=== PATIENT | female | born 1935 | race Caucasian/White ===

== ENCOUNTER 2017-11-25 11:21 | Emergency (ER) | payer MEDICARE ==
[2017-11-25] MEDS ORDERED: ACETAMINOPHEN 325 MG TAB PO ONE (11:48)
--- NOTE | 2017-11-25 11:52 | Emergency Department Record ---
History of Present Illness - General Chief complaint: Pain Stated complaint: PAIN IN RIGHT SIDE Time Seen by Provider: 11/25/17 11:39 Source: Patient Mode of Arrival: Ambulatory Limitations: No limitations - History of Present Illness Initial comments: The patient is here due to R rib pain for 3 days. It is a sharp stabbing pain in the R lower ribs that is worse with any twisting, bending or palpation. She denies any fall or trauma or any L sided CP, SOB, or MACARENA. The patient also denies any AP, nausea, vomiting, or diarrhea. MD Complaint: Other Onset/Timin -: Days(s) Location: Right, Other History of Same: No Severity scale (1-10): 7 Quality: Other Consistency: Constant Improves with: Nothing Worsens with: Palpation, Other (twisting.) Associated Symptoms: Denies other symptoms - Related Data Home Medications Medication Instructions Recorded Confirmed Last Taken Bupropion HCl [Bupropion Xl] 300 mg PO DAILY 11/25/17 11/25/17 Unknown Diclofenac Sodium [Diclofenac 1 gm TOP ASDIR 11/25/17 11/25/17 Unknown Sodium] Donepezil HCl [Donepezil HCl] 10 mg PO DAILY 11/25/17 11/25/17 Unknown Levothyroxine Sodium [Synthroid] 112 mcg PO DAILY 11/25/17 11/25/17 Unknown Lovastatin [Lovastatin] 40 mg PO DAILY 11/25/17 11/25/17 Unknown Quinapril HCl [Accupril] 20 mg PO DAILY 11/25/17 11/25/17 Unknown Venlafaxine HCl [Venlafaxine HCl 75 mg PO DAILY 11/25/17 11/25/17 Unknown ER] Zolpidem Tartrate [Zolpidem 10 mg PO QHS PRN 11/25/17 11/25/17 Unknown Tartrate] Allergies Allergy/AdvReac Type Severity Reaction Status Date / Time No Known Drug Intolerances Allergy Unknown HYPERSENSIT Verified 07/17/16 08:01 IVITY Travel Screening - Travel/Exposure Within Last 30 Days Have you traveled within the last 30 days?: No Review of Systems Constitutional: Denies: Chills, Fever Eyes: Denies: Eye discharge ENT: Denies: Congestion Respiratory: Denies: Cough, Dyspnea Past Medical History - SOCIAL HISTORY Smoking Status: Never smoker Alcohol Use: None Drug Use: None - RESPIRATORY Hx Respiratory Disorders: Yes Hx Sleep Apnea: Yes Hx of CPAP: Yes - CARDIOVASCULAR Hx Cardio Disorders: Yes Hx Hypertension: Yes (on meds well controlled) Comment:: high cholesterol - NEURO Hx Neuro Disorders: Yes Comment:: memory loss mild - GI Hx GI Disorders: Yes Hx Reflux: Yes Hx Rectal Bleeding: Yes (2013) Hx Ulcer: Yes (2013) - Hx Genitourinary Disorders: Yes Hx Bladder Problem: Yes (urgency) - ENDOCRINE Hx Endocrine Disorders: Yes Hx Thyroid Disease: Yes - MUSCULOSKELETAL Hx Musculoskeletal Disorders: Yes Hx Arthritis: Yes - PSYCH Hx Psych Problems: Yes Hx Anxiety: Yes Hx Depression: Yes - HEMATOLOGY/ONCOLOGY Hx Hematology/Oncology Disorders: Yes Hx Bruising: Yes Hx Blood Transfusions: Yes (04/2015 in hospital for GIB) Hx Blood Transfusion Reaction: No Family Medical History Any Significant Family History?: Yes Hx Cancer: Mother Physical Exam - General General Appearance: Alert, Oriented x3, Cooperative, No acute distress - Head Head exam: Atraumatic, Normocephalic - Eye Eye exam: Normal appearance, PERRL - Neck Neck exam: Normal inspection, Full ROM. negative: Tenderness - Respiratory Respiratory exam: Normal lung sounds bilaterally, Chest wall tenderness (The pain is 100% reproducible with palpation over the R lateral inferior ribs.). negative: Rales, Respiratory distress - Cardiovascular Cardiovascular Exam: Regular rate, Normal rhythm, Normal heart sounds - GI/Abdominal GI/Abdominal exam: Soft, Normal bowel sounds. negative: Tenderness - Extremities Extremities exam: Normal inspection, Full ROM, Normal capillary refill. negative: Tenderness Image of Full Body: 1 - Area of pain and tenderness. Course Vital Signs 11/25/17 11:26 Temperature 97.5 F L Pulse Rate 76 Respiratory 18 Rate Blood Pressure 130/65 Pulse Ox 96 - Reevaluation(s) Reevaluation #1: The patient is resting comfortably. She denies any new pain or any significant discomfort at this time. I explained the xray results to the patient and the need for f/u. 11/25/17 12:44 Medical Decision Making - Data Complexity MDM Data: X-Ray Ordered and/or Reviewed - Radiology Data Radiology results: Report reviewed (Rib xrays: Neg R side. Poss old L nondisplaced rib fx's x2.) Disposition Disposition: Discharge Clinical Impression: Contusion of rib Qualifiers: Encounter type: initial encounter Laterality: unspecified laterality Qualified Code(s): S20.219A - Contusion of unspecified front wall of thorax, initial encounter Disposition: Home, Self-Care Condition: (2) Stable Instructions: Pain Management in the Elderly (ED), Rib Contusion (ED) Additional Instructions: Please see your PCP for recheck next week and take 2 regular tylenol every 6-8 hours for pain. Return to the ER for any worsening symptoms. Forms: Patient Portal Access Time of Disposition: 12:46 Quality - Quality Measures Quality Measures: N/A - Blood Pressure Screening View Details: Yes Does Patient Have Any of the Following: No Blood Pressure Classification: Pre-Hypertensive BP Reading Systolic Measurement: 130 Diastolic Measurement: 65 Screening for High Blood Pressure: < Pre-Hypertensive BP, F/U Documented > [ G8950] Pre-Hypertensive Follow-up Interventions: Referral to alternative/primary care provider.
--- NOTE | 2017-11-25 19:57 | RADIOLOGY REPORT ---
EXAM: RIBS, BILATERAL W/PA CHEST HISTORY: BILATERAL MID TO LOWER RIB PAIN AFTER MANEUVERING IN A TIGHT SPACE THREE DAYS AGO. TECHNIQUE: PA chest, AP and oblique views of the ribs bilaterally. COMPARISON: No prior rib series or chest x-ray with which to compare. ENCOUNTER: Initial. FINDINGS: No definite right rib fracture identified. There is questionably a subtle fracture deformity anteriorly in the left anterior seventh rib, which could be due to old injury but correlation with point tenderness suggested. There is similar minor deformity anteriorly in the left sixth rib, which may also be chronic in nature. Again, correlation with point tenderness suggested. On the accompanying chest x-ray, no definite pneumothorax or pleural effusion evident. Mild torsion of the aorta. Wires overlying the lower thoracic and upper lumbar spine, presumably related to a pain stimulator device. Lumbar levoscoliosis. IMPRESSION: 1. NO RIGHT RIB FRACTURE SEEN. 2. QUESTIONABLE MINOR FRACTURE DEFORMITY ANTERIORLY IN THE LEFT SEVENTH AND POSSIBLY ALSO SIXTH RIBS, WHICH MAY BE CHRONIC IN NATURE. CORRELATION WITH POINT TENDERNESS SUGGESTED. 3. LUMBAR LEVOSCOLIOSIS. JOB NUMBER: [id number] [facility]
== END 2017-11-25 13:04 | disposition home or self-care (01) ==
LOC: ER 11:21
DX: S20.219A Contusion of unspecified front wall of thorax, initial encounter (principal); X50.0XXA Overexertion from strenuous movement or load, initial encounter; I10 Essential (primary) hypertension
CPT/HCPCS: 71111; 99283

== ENCOUNTER 2017-12-19 17:35 | Observation (INO) | payer MEDICARE ==
--- NOTE | 2017-12-19 18:33 | Emergency Department Record ---
History of Present Illness - General Chief Complaint: Back Pain/Injury Stated Complaint: BACK PAIN Time Seen by Provider: 12/19/17 18:28 Source: Patient Limitations: No limitations - History of Present Illness Initial Comments: 82 yo female presents to ED for evaluation of upper back pain symptoms for the past several weeks. Patient reports that she may have injured her back while working with some shelving at her home, reports that her pain symptoms however worsened today. Patient denies numbness, tingling, or weakness to the extremities on examination. Patient overall is a poor historian. MD Complaint: Back pain Onset/Timin -: Week(s) Similar Symptoms Previously: No Place: Home Severity: Moderate Severity scale (1-10): 7 Quality: Aching, Other Improves With: None Worsens With: Movement Context: Unknown - Related Data Home Medications Medication Instructions Recorded Confirmed Last Taken Sertraline HCl [Zoloft] 25 mg PO DAILY 12/19/17 12/19/17 1 Day Ago ~12/18/17 Allergies Allergy/AdvReac Type Severity Reaction Status Date / Time No Known Drug Intolerances Allergy Unknown HYPERSENSIT Verified 12/19/17 17:59 IVITY Travel Screening - Travel/Exposure Within Last 30 Days Have you traveled within the last 30 days?: No - Travel/Exposure Within Last Year Have you traveled outside the [place] in the last year?: No - Additonal Travel Details Have you been exposed to anyone with a communicable illness?: No - Travel Symptoms Symptom Screening: None Review of Systems ROS unobtainable: Other ENT: Denies: Epistaxis Musculoskeletal: Reports: Back pain Past Medical History - SOCIAL HISTORY Smoking Status: Never smoker Alcohol Use: None Drug Use: None - RESPIRATORY Hx Respiratory Disorders: Yes Hx Sleep Apnea: Yes Hx of CPAP: Yes - CARDIOVASCULAR Hx Cardio Disorders: Yes Hx Hypertension: Yes (on meds well controlled) Comment:: high cholesterol - NEURO Hx Neuro Disorders: Yes Comment:: memory loss mild - GI Hx GI Disorders: Yes Hx Reflux: Yes Hx Rectal Bleeding: Yes (2013) Hx Ulcer: Yes (2013) - Hx Genitourinary Disorders: Yes Hx Bladder Problem: Yes (urgency) - ENDOCRINE Hx Endocrine Disorders: Yes Hx Thyroid Disease: Yes - MUSCULOSKELETAL Hx Musculoskeletal Disorders: Yes Hx Arthritis: Yes Comment:: back stimulator by Dr Josue 2014 - PSYCH Hx Psych Problems: Yes Hx Anxiety: Yes Hx Depression: Yes - HEMATOLOGY/ONCOLOGY Hx Hematology/Oncology Disorders: Yes Hx Bruising: Yes Hx Blood Transfusions: Yes (04/2015 in hospital for GIB) Hx Blood Transfusion Reaction: No Family Medical History Any Significant Family History?: Yes Hx Cancer: Mother Physical Exam - General General Appearance: Alert, Cooperative, No acute distress Limitations: No limitations - Head Head exam: Atraumatic, Normocephalic, Normal inspection Head exam detail: negative: Abrasion, Contusion, Rand's sign, General tenderness, Hematoma, Laceration - Eye Eye exam: Normal appearance. negative: Conjunctival injection, Periorbital swelling, Periorbital tenderness, Scleral icterus - ENT Ear exam: negative: Auricular hematoma, Auricular trauma Nasal Exam: negative: Active bleeding, Discharge, Dried blood, Sinus tenderness Mouth exam: negative: Drooling, Laceration, Tongue elevation - Neck Neck exam: Normal inspection. negative: Meningismus, Tenderness - Respiratory Respiratory exam: Normal lung sounds bilaterally. negative: Respiratory distress, Rhonchi, Stridor, Wheezes - Cardiovascular Cardiovascular Exam: Regular rate, Normal rhythm, Normal heart sounds - GI/Abdominal GI/Abdominal exam: Soft. negative: Rebound, Rigid, Tenderness - Rectal Rectal exam: Deferred - exam: Deferred - Extremities Extremities exam: negative: Calf tenderness, Pedal edema, Tenderness - Back Back exam: Reports: Paraspinal tenderness (Paravertebral muscles bilaterally thoracic spine region). Denies: CVA tenderness (R), CVA tenderness (L) - Neurological Neurological exam: Alert, CN II-XII intact. negative: Motor sensory deficit - Psychiatric Psychiatric exam: Normal affect, Normal mood - Skin Skin exam: Normal color. negative: Abrasion Type of lesion: negative: abrasion Course Vital Signs 12/19/17 17:52 Temperature 98.3 F Pulse Rate 154 H Respiratory 20 Rate Blood Pressure 125/74 Pulse Ox 97 - Reevaluation(s) Reevaluation #1: 12/19/17 19:21 Labs reviewed, BUN 412, Creatinine 1.4 (baseline 22-25/1.1). Labs are otherwise grossly unremarkable for an acute process. EKG: NSR 87 Normal axis, normal intervals No acute ST-T wave changes Reevaluation #2: 12/19/17 20:56 CT Thoracic Spine: NO fracture, diffuse spurring spine Spinal nerve stimulator stimulator in place Thyroid nodule CT Lumbar Spine Advanced central canal stenosis L2-L3, L3-L4 No fracture Chronic changes present Reevaluation #3: 12/19/17 21:42 Case was discussed with Melonie, will admit for cardiac evaluation and IVF resuscitation for elevated BUN/Creatinine. Will hold anticoagulation unless atrial fibrillation reoccurs. Medical Decision Making - Lab Data Result diagrams: 12/19/17 18:15 12/19/17 18:15 Disposition Disposition: Admit Clinical Impression: Paroxysmal atrial fibrillation ARF (acute renal failure) Qualifiers: Acute renal failure type: unspecified Qualified Code(s): N17.9 - Acute kidney failure, unspecified Back pain Qualifiers: Back pain location: thoracic back pain Chronicity: acute Back pain laterality: midline Qualified Code(s): M54.6 - Pain in thoracic spine Disposition: Still a Patient at [facility] Decision to Admit: Admit from ER Decision to Admit Date: 12/19/17 Decision to Admit Time: 21:43 Forms: Patient Portal Access Time of Disposition: 21:43 Quality - Quality Measures Quality Measures: N/A - Blood Pressure Screening Does Patient Have Any of the Following: No Blood Pressure Classification: Pre-Hypertensive BP Reading Systolic Measurement: 125 Diastolic Measurement: 74 Screening for High Blood Pressure: < Pre-Hypertensive BP, F/U Documented > [ G8950] Pre-Hypertensive Follow-up Interventions: Referral to alternative/primary care provider.
[2017-12-19 18:43] LABS: BASO % 0.2 % (0-6); GRAN % 69.5 % (47-80); HEMATOCRIT 39.2 % (35.0-47.0); HEMOGLOBIN 13.2 gm/dl (11.6-16.0); LYMPH % 18.5 % (16-45); MEAN CELL VOLUME 97.3 fl (81-97); MEAN CORPUSCULAR HEMOGLOBIN 32.8 pg (27-33); MEAN CORPUSCULAR HGB CONC 33.7 g/dl (32-36); MEAN PLATELET VOLUME 12.6 fl (7.4-10.4); MONO % 11.8 % (0-9); PLATELET COUNT 212 K/uL (130-400); RED BLOOD COUNT 4.03 M/uL (3.80-5.40); RED CELL DISTRIBUTION WIDTH 13.5 % (11.5-14.5); WHITE BLOOD COUNT W/O DIFF 8.7 K/uL (4.2-12.2)
[2017-12-19 18:55] LABS: INR 0.93; PARTIAL THROMBOPLASTIN TIME 24.8 SECONDS (24.5-39.1)
[2017-12-19 18:57] LABS: BLOOD UREA NITROGEN 41 mg/dL (8-23); CREATININE 1.4 mg/dL (0.5-0.9); EST GLOMERULAR FILTRATION RATE 38 mL/min
[2017-12-19 18:58] LABS: TOTAL PROTEIN 6.7 g/dL (6.6-8.7)
[2017-12-19 19:00] LABS: GLUCOSE,RANDOM 150 mg/dL (74-109)
[2017-12-19 19:02] LABS: ALT/SGPT 18 U/L (<33)
[2017-12-19 19:03] LABS: ALB/GLOB RATIO 1.5 (1.1-1.8); ALKALINE PHOSPHATASE 68 U/L (35-104); AST/SGOT 25 U/L (10.0-35.0); CREATINE PHOSPHOKINASE 64 U/L (26-192)
[2017-12-19 19:05] LABS: CKMB 1.8 ng/mL (<3.77)
[2017-12-19] MEDS ORDERED: DICLOFENAC SODIUM 1 GM TOP SCH (23:00)
[2017-12-19] MEDS ORDERED: ZOLPIDEM TARTRATE 5 MG TABLET PO PRN (23:36)
[2017-12-20] MEDS: ACETAMINOPHEN 500 MG TABLET PO PRN ×2 (00:02→12:59)
[2017-12-20] MEDS: 0.9 % SODIUM CHLORIDE 1000ML 1,000 ML IV PRN (02:38)
--- NOTE | 2017-12-20 05:36 | History & Physical ---
History of Present Illness - Date of Service Date of Service for History & Physical: 12/20/17 - History of Present Illness Admitting Diagnosis: Paroxysmal atrial fibrillation. ARF. Chronic back pain History of Present Illness: Dolores is an 82 year-old female who presented to the ED on 12/19 for evaluation of back pain that started several weeks ago, may have injured while she was working with some shelves at her home. She denied numbness, tingling, and weakness of her extremities. It was noted that is a poor historian. Her history includes hypertension, ELMER, C-PAP, memory loss, ulcer, depression, anxiety, heavy etoh use, back stimulator inserted by Dr. Martins in 2014. In the ED, It was noted that she had an episode of paroxysmal a-fib. Her EKG demonstrated normal sinus rhythm with a rate of 87. Her CBC was unremarkable, her CMP showed elevated BUN of 41 and creatinine of 1.4. CT thoractic spine showed no fracture, diffuse spurring and spinal nerve stimulator in place. CT lumbar spine showed no fracture, advanced central canal stenosis of L2-L3, L3-L4. She continues to deny numbness, tingling, or weakness to extremities upon examination. Pt. was admitted for cardiac evaluation, monitoring of renal function, and ivf resuscitation. 12/20/17 1000: Pt. is resting in bed. She denies back pain at the present time , however, she states that she notices the pain with certain position changes. Vital signs remain stable. Plan PT/OT eval today. Plan to order echo today and cardiology consult. Dr. Ayoub here tomorrow, 12/21. Continue continuous heart monitor, continue to monitor CMP and vital signs. Travel Screening - Travel/Exposure Within Last 30 Days Have you traveled within the last 30 days?: No - Travel/Exposure Within Last Year Have you traveled outside the [place] in the last year?: No - Additonal Travel Details Have you been exposed to anyone with a communicable illness?: No - Travel Symptoms Symptom Screening: None Review of Systems Constitutional: Reports: As per HPI Eyes: Reports: As per HPI ENT: Denies: Congestion, Ear pain, Epistaxis Respiratory: Denies: Cough, Wheezes Cardiovascular: Denies: Arrhythmia, Chest pain, Dyspnea on exertion, Edema, Palpitations Endocrine: Reports: As per HPI. Denies: Fatigue, Heat or cold intolerance, Polydipsia, Polyuria Gastrointestinal: Reports: As per HPI. Denies: Abdominal pain, Constipation, Diarrhea, Hematemesis, Hematochezia, Melena, Nausea, Vomiting Genitourinary: Reports: As per HPI. Denies: Abnormal menses, Discharge, Dyspareunia, Dysuria, Frequency, Hematuria, Incontinence, Retention, Urgency Musculoskeletal: Reports: Back pain Skin: Reports: As per HPI. Denies: Bruising, Change in color, Change in hair/ nails, Lesions, Pruritus, Rash Neurological: Reports: As per HPI. Denies: Abnormal gait, Confusion, Headache, Numbness, Paresthesias, Seizure, Tingling, Tremors, Vertigo, Weakness Hematological/Lymphatic: Reports: As per HPI. Denies: Anemia, Blood Clots, Easy bleeding, Easy bruising, Swollen glands Past Medical History - SOCIAL HISTORY Smoking Status: Never smoker Alcohol Use: Heavy Alcohol Use Comment: a drink every day Drug Use: None - RESPIRATORY Hx Respiratory Disorders: Yes Hx Sleep Apnea: Yes Hx of CPAP: Yes - CARDIOVASCULAR Hx Cardio Disorders: Yes Hx Hypertension: Yes (on meds well controlled) Comment:: high cholesterol - NEURO Hx Neuro Disorders: Yes Comment:: memory loss mild - GI Hx GI Disorders: Yes Hx Reflux: Yes Hx Rectal Bleeding: Yes (2013) Hx Ulcer: Yes (2013) - Hx Genitourinary Disorders: Yes Hx Bladder Problem: Yes (urgency) - ENDOCRINE Hx Endocrine Disorders: Yes Hx Thyroid Disease: Yes - MUSCULOSKELETAL Hx Musculoskeletal Disorders: Yes Hx Arthritis: Yes Comment:: back stimulator by Dr Josue 2014 - PSYCH Hx Psych Problems: Yes Hx Anxiety: Yes Hx Depression: Yes - HEMATOLOGY/ONCOLOGY Hx Hematology/Oncology Disorders: Yes Hx Bruising: Yes Hx Blood Transfusions: Yes (04/2015 in hospital for GIB) Hx Blood Transfusion Reaction: No Family Medical History Any Significant Family History?: Yes Hx Cancer: Mother H&P Meds/Allergies - Allergies Allergies: Allergies Allergy/AdvReac Type Severity Reaction Status Date / Time No Known Drug Intolerances Allergy Unknown HYPERSENSIT Verified 12/19/17 17:59 IVITY - Home Medications Home Medications Medication Instructions Recorded Confirmed Last Taken Sertraline HCl [Zoloft] 25 mg PO DAILY 12/19/17 12/19/17 1 Day Ago ~12/18/17 - Active Medications Active Medications: Current Medications Acetaminophen (Tylenol 500mg Tab) 1,000 mg PO Q8H PRN PRN Reason: Pain - General Last Admin: 12/20/17 00:02 Dose: 1,000 mg Bupropion HCl (Wellbutrin Sr) 150 mg PO BID GOLDY Donepezil HCl (Aricept) 10 mg PO DAILY GOLDY Sodium Chloride () 1,000 mls @ 83 mls/hr IV .Q12H3M PRN PRN Reason: LARGE VOLUME IV Last Admin: 12/20/17 02:38 Dose: 83 mls/hr Levothyroxine Sodium (Synthroid) 112 mcg PO DAILYTHY GOLDY Non-Formulary Medication (Diclofenac Sodium [Diclofenac Sodium]) 1 gm TOP ASDIR GOLDY Quinapril HCl (Accupril) 20 mg PO DAILY GOLDY Sertraline HCl (Zoloft) 25 mg PO DAILY GOLDY Simvastatin (Zocor) 20 mg PO QHS GOLDY Venlafaxine HCl (Effexor Xr) 75 mg PO DAILY GOLDY Zolpidem Tartrate (Ambien) 10 mg PO QHS PRN PRN Reason: SLEEP Physical Exam - Vital Signs Vital Signs: Vital Signs - Last 24 Hrs Temp Pulse Resp BP Pulse Ox 12/20/17 00:25 89 18 12/19/17 23:05 97.9 F 89 18 114/62 97 - General General Appearance: Alert, Cooperative, No acute distress Limitations: No limitations - Head Head exam: Atraumatic, Normocephalic, Normal inspection Head exam detail: negative: Abrasion, Contusion, Rand's sign, General tenderness, Hematoma, Laceration - Eye Eye exam: Normal appearance. negative: Conjunctival injection, Periorbital swelling, Periorbital tenderness, Scleral icterus - ENT ENT exam: Normal exam Ear exam: negative: Auricular hematoma, Auricular trauma Nasal Exam: negative: Active bleeding, Discharge, Dried blood, Sinus tenderness Mouth exam: negative: Drooling, Laceration, Tongue elevation - Neck Neck exam: Normal inspection. negative: Meningismus, Tenderness - Respiratory Respiratory exam: Normal lung sounds bilaterally. negative: Respiratory distress, Rhonchi, Stridor, Wheezes - Cardiovascular Cardiovascular Exam: Regular rate, Normal rhythm, Normal heart sounds - GI/Abdominal GI/Abdominal exam: Soft. negative: Rebound, Rigid, Tenderness - Rectal Rectal exam: Deferred - exam: Deferred - Extremities Extremities exam: negative: Calf tenderness, Pedal edema, Tenderness - Back Back exam: Reports: Paraspinal tenderness (Paravertebral muscles bilaterally thoracic spine region). Denies: CVA tenderness (R), CVA tenderness (L) - Neurological Neurological exam: Alert, CN II-XII intact. negative: Motor sensory deficit - Psychiatric Psychiatric exam: Normal affect, Normal mood - Skin Skin exam: Normal color. negative: Abrasion Type of lesion: negative: abrasion Results - Labs Result Diagrams: 12/20/17 04:00 12/20/17 04:00 Labs Last 24 Hours: Laboratory Results - last 24 hr 12/20/17 03:00 Troponin T < 0.010 VTE H&P Assessment - Risk for VTE Risk for VTE: Yes Risk Level: Moderate Risk Assessment Date: 12/20/17 (paroxysmal a-fib and decreased mobility secondary to lumbar strain) Risk Assessment Time: 11:00 VTE Orders Placed or Will Be Placed: Yes Plan - Inpatient Certification Inpatient Certification: Admit to inpatient care: Based on my medical assessment, after consideration of patient's risk factors (age, co-morbidities and patient presenting symptoms and acuity), I expect that this patient will remain in the hospital greater than or equal to two midnights and that the services needed warrant inpatient care because: Patient Risk Factors: [age, need for cardiac evaluation, weakness, ARF] Estimated length of stay: [] The patient may reasonably be expected to be discharged or transferred to a hospital within 96 hours after admission to [facility]. Services needed: [cardiac evaluation, monitoring of renal function, continuous heart monitor] Post hospital care (if known): [] I certify that my determination is in accordance with my understanding of Medicare requirements for reasonable and necessary inpatient services. 12/20/17 13:56 - Detailed Diagnosis and Plan (1) Paroxysmal atrial fibrillation Current Visit: Yes Status: Acute Base Code: I48.0 - PAROXYSMAL ATRIAL FIBRILLATION Comment: 12/20/17 1000: Pt. had episode of paroxysmal a fib in ED , EKG was NSR, Pt. on continuous heart monitor and remains in NSR. Echo ordered for today and referred to cardiology- Dr. Ayoub here tomorrow (12/21). Plan to contnue cardiac surgeon. (2) ARF (acute renal failure) Current Visit: Yes Status: Acute Qualifiers: Acute renal failure type: unspecified Qualified Code(s): N17.9 - Acute kidney failure, unspecified Base Code: N17.9 - ACUTE KIDNEY FAILURE, UNSPECIFIED Comment: 12/20/17 1000: In ED on 12/19, BUN 412 and creatinine 1.4 (pt's baseline 22-25/1.1). BUN decreased to 33 today and creatinine to 1.0. Continue IVF resuscitation for elevated BUN creatinine and will re-evaluate CMP on 12/21. (3) Lumbar pain Current Visit: No Status: Acute Base Code: M54.5 - LOW BACK PAIN Comment: 12/20/17 1000: Pt. presented to the ED on 12/19 for back pain that occurred while she was working with some shelves at her home. CT thoractic spine showed no fracture, diffuse spurring and spinal nerve stimulator in place. CT lumbar spine showed no fracture, advanced central canal stenosis of L2-L3, L3-L4. She continues to deny numbness, tingling, or weakness to extremities upon examination. (4) At risk for deep venous thrombosis Current Visit: Yes Status: Acute Base Code: Z91.89 - OTH PERSONAL RISK FACTORS, NOT ELSEWHERE CLASSIFIED Comment: 12/20/17 1000: paroxysmal a fib in ED, decreased mobility secondary to lumbar strain. Will order 40mg sc lovenox daily. (5) Full code status Current Visit: Yes Status: Acute Base Code: Z78.9 - OTHER SPECIFIED HEALTH STATUS Comment: 12/20/17 1000: pt. is full code status
[2017-12-20 05:39] LABS: HEMATOCRIT 36.5 % (35.0-47.0); HEMOGLOBIN 11.9 gm/dl (11.6-16.0); MEAN CELL VOLUME 98.9 fl (81-97); MEAN CORPUSCULAR HEMOGLOBIN 32.2 pg (27-33); MEAN CORPUSCULAR HGB CONC 32.6 g/dl (32-36); MEAN PLATELET VOLUME 12.6 fl (7.4-10.4); PLATELET COUNT 189 K/uL (130-400); RED BLOOD COUNT 3.69 M/uL (3.80-5.40); RED CELL DISTRIBUTION WIDTH 13.6 % (11.5-14.5); WHITE BLOOD COUNT W/O DIFF 5.8 K/uL (4.2-12.2)
[2017-12-20 05:53] LABS: ALB/GLOB RATIO 1.5 (1.1-1.8); ALBUMIN 3.7 g/dL (4.0-5.0); BILIRUBIN,TOTAL 0.4 mg/dL (0.2-1.0); TOTAL PROTEIN 6.2 g/dL (6.6-8.7)
[2017-12-20] MEDS ORDERED: LEVOTHYROXINE SOD 112 MCG TAB PO SCH (07:00)
--- NOTE | 2017-12-20 07:38 | CT SCAN REPORT ---
EXAM: EMERGENCY CT SCAN OF THE THORACIC SPINE WITHOUT CONTRAST HISTORY: PAIN FOR WEEKS RADIATING INTO CHEST TODAY. SPINAL CORD STIMULATOR IN PLACE. NO RECENT INJURY. TECHNIQUE: Axial CT scan of the thoracic spine was performed without IV contrast. Comparison: No prior thoracic spine plain film series or CT with which to compare and no prior two view chest x-ray with which to compare. FINDINGS: There is a mild thoracic curve convexed to the right. The upper scans begin within the body of T1 such that the entire body of T1 is not entirely included on this CT. No definite fracture of the thoracic spine identified. There is mild spurring diffusely throughout the thoracic spine. Spinal stimulator wires enter the spinal canal at the level of the T12-L1 and L1 -L2 interspaces and ascend up along the posterior aspect of the spinal canal up to the T10 level. No paraspinal mass identified in the thoracic spine. The upper most images partially demonstrate a low attenuation mass about 1.8 cm in size that appears to be in the thyroid gland slightly to the left of midline. Correlation with physical exam suggested and follow-up nonemergent thyroid ultrasound may be useful. There is probably some dependent atelectasis in both posterior lungs. Some coronary artery calcification is present. No pleural or pericardial effusion evident. IMPRESSION: 1. NO THORACIC SPINE FRACTURE IDENTIFIED. 2. SPINAL STIMULATOR WIRES IN PLACE EXTENDING ALONG THE POSTERIOR ASPECT OF THE SPINAL CANAL FROM THE UPPER LUMBAR REGION UP TO T10. 3. PROBABLE RELATIVELY LARGE THYROID NODULE IN THE MEDIAL ASPECT OF THE LEFT LOBE OF THE THYROID ABOUT 1.8 CM IN SIZE PARTIALLY SEEN ON THE UPPER IMAGE. FOLLOW-UP THYROID ULTRASOUND MAY BE USEFUL. JOB NUMBER: [id number] [facility]
--- NOTE | 2017-12-20 07:54 | CT SCAN REPORT ---
EXAM: LUMBAR SPINE CT SCAN HISTORY: BACK PAIN RADIATES TO CHEST TODAY, CHRONIC BACK PAIN, NO RECENT INJURY. TECHNIQUE: Axial CT scan of the entire lumbar spine was performed without IV contrast. Comparison: No prior lumbar spine CT with which to compare. Comparison is made with the lumbar spine plain film series of 07/17/16. Comparison is also made with the prior lumbar spine CT of 09/03/11. FINDINGS: No definite fracture of the lumbar spine identified. There is a lumbar levoscoliosis present. Considerable narrowing of the L4-L5 and L5-S1 interspaces with the lumbosacral interspace almost completely obliterated. There is multilevel facet joint arthropathy particularly in the mid to lower lumbar spine and there is slight anterior subluxation of L2 on L3 and of L3 on L4 which appears to be on the basis of this extensive facet joint arthropathy. Spinal stimulator wires enter the spinal canal at the L1-L2 and at the T12-L1 levels and ascend up into the lower thoracic level as noted on the thoracic spine CT from today. These wires connect to a battery pack within the subcutaneous tissues of the right buttock region. There is marked central stenosis at the L2-L3 interspace related to a combination of the subluxation at this level, advanced facet joint arthropathy, and some generalized bulging of the annulus. There is also marked central stenosis at the L3-L4 level also based on the same factors. Foraminal stenosis at these two levels as well as some impingement on the inferior aspect of the lumbar neural foramina at other levels as well. There is probably a small bilateral adrenal nodule presumably representing small bilateral adrenal adenomas. These were present on the prior lumbar spine CT of 09/03/11 as well. When comparison is made with the prior lumbar spine CT of 09/03/11, the marked central spinal stenosis at the L2-L3 level currently has progressed whereas the degree of stenosis at the L3-L4 level has not changed much in the interval. The lumbar levoscoliosis evident today was present previously as well although appears slightly more pronounced today. IMPRESSION: 1. ADVANCED CENTRAL STENOSIS AT THE L2-L3 AND L3-L4 LEVELS. 2. ADVANCED DEGENERATIVE DISK DISEASE AT THE L4-L5 AND L5-S1 LEVELS. 3. LUMBAR LEVOSCOLIOSIS. 4. SPINAL STIMULATOR WIRES IN PLACE. 5. NO FRACTURE OF THE LUMBAR SPINE IDENTIFIED. JOB NUMBER: [id number] [facility]
[2017-12-20] MEDS ORDERED: VENLAFAXINE ER 75 MG CAPSULE PO SCH (10:00)
[2017-12-20] MEDS: QUINAPRIL HCL 10 MG TABLET PO SCH (11:16)
[2017-12-20] MEDS: DONEPEZIL HCL 5 MG TABLET PO SCH (11:17)
[2017-12-20] MEDS: BUPROPION HCL 150 MG TAB.SR.12H PO SCH ×2 (11:18→22:01)
[2017-12-20] MEDS: SERTRALINE HCL 50 MG TABLET PO SCH ×2 (11:21→17:49)
[2017-12-20] MEDS: VENLAFAXINE ER 75 MG CAPSULE PO SCH (11:25)
--- NOTE | 2017-12-20 13:01 | Rehab Evaluation ---
Patient Information - Patient Information Diagnosis: Paryoxysmal A-Fib, ARF, Chronic Back Pain Ordered Treatment: PT Evaluate and Treat Status: Initial Evaluation Surgery: No Past Medical/Surgical Hx: PAST MEDICAL/SURGICAL HISTORY Past Surgical History back injection; scs trial/implant; cararacts; colonoscopy; hysterectomy; PMH - Respiratory Hx Respiratory Disorders Yes Hx Sleep Apnea Yes Hx of CPAP Yes PMH - Cardiovascular Hx Cardiovascular Disorders Yes Hx Hypertension Yes: on meds well controlled Comment: high cholesterol PMH - Neuro Hx Neurological Disorders Yes Comment: memory loss mild PMH - GI Hx Gastrointestinal Disorders Yes Hx Gastroesophageal Reflux Yes Hx Rectal Bleeding Yes: 2013 Hx Ulcer Yes: 2013 PMH - Hx Genitourinary Disorders Yes Hx Bladder Problem Yes: urgency PMH - Endocrine Hx Endocrine Disorders Yes Hx Thyroid Disease Yes PMH - Musculoskeletal Hx Musculoskeletal Disorders Yes Hx Arthritis Yes Comment: back stimulator by Dr Josue 2014 PMH - Psych Hx Psychiatric Problems Yes Hx Anxiety Yes Hx Depression Yes PMH - Hematology/Oncology Hx Hematology/Oncology Yes Disorders Hx Bruising Yes Hx Blood Transfusion Reaction No Social History: Detail (The patient reports that she lives with her and dog in a one story home that has both a basement and a loft. She reports that she doesn't go into the loft or basement that often. She says that she has three stairs to enter the home with a railing (did not specify side). Her home has both a walk-in shower and a shower/tub combination, and she says that she utilizes the walk-in shower because she has a seat. She reports that she is independent with her bathing, but her is available if she needs assistance. The bathroom has a standard height toilet, and she does not have grab bars in the bathroom or the shower. She says she does most of her cooking and cleaning by herself. She denies the use of a cane or walker for ambulation. 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 She reports that the pain is preventing her from moving around much, in general.) Objective Data - Pain Pain Present: Yes Pain Intensity: 8 Pain Scale Used: Numeric (1 - 10) - Mental Status Patient Orientation: Oriented x3 - ROM Within normal limits (Not formally assessed, but was displayed adequate motion with functional activities (ambulation and transfers). See OT note for UE ROM.) - Strength/Tone Within normal limits (Bilateral Quads, Hamstrings, Plantarflexion, Dorsiflexion , and Hip Flexion were 5/5.) - Bed Mobility Independent (Able to transfer from supine to sit and scoot in bed independently. ) - Transfers Independent (The patient was independent with sit to stand, and only required a single hand to push up from the hand.) - Balance Balance Sitting: Good Balance Standing: Good (Showed no losses of balance upon rising from sit to stand, and no deviations while ambulating.) - Gait Detail (The patient ambulated from her room to the surgical waiting area 140 ft x 2 with single hand-hold assist. She showed no loss of balance, and ambulated safely throughout.) Therapy Assessment - Therapy Assessment Detail (The patient showed independence with transfers, bed mobility, and ambulation. The patient's strength was 5/5 throughout her LE's, and her ROM was within functional limits throughout. She did have complaints of increased back pain, but it did not limit her functional ability. The patient should be able to return home independently once she is discharged from [facility].) Problem List - Problem List Physical Therapy Problem List: Detail (1) Increased back pain) Goals - Goals Physical Therapy Goals: The patient has adequate strength, ROM, functional mobility and does not require continued inpatient PT at this time. Prognosis - Prognosis Good Plan - Plan Physical Therapy Plan: The patient will not need continued inpatient PT as she shows functional strength, mobility, and is able to ambulate safely and independently. She should be able to safely return home independently.
--- NOTE | 2017-12-20 15:35 | Rehab Evaluation ---
Patient Information - Patient Information Diagnosis: Paroxysmal A-Fib, ARF, Chronic Back Pain Ordered Treatment: OT Evaluate and Treat Status: Initial Evaluation Surgery: No Past Medical/Surgical Hx: PAST MEDICAL/SURGICAL HISTORY Past Surgical History back injection; scs trial/implant; cararacts; colonoscopy; hysterectomy; PMH - Respiratory Hx Respiratory Disorders Yes Hx Sleep Apnea Yes Hx of CPAP Yes PMH - Cardiovascular Hx Cardiovascular Disorders Yes Hx Hypertension Yes: on meds well controlled Comment: high cholesterol PMH - Neuro Hx Neurological Disorders Yes Comment: memory loss mild PMH - GI Hx Gastrointestinal Disorders Yes Hx Gastroesophageal Reflux Yes Hx Rectal Bleeding Yes: 2013 Hx Ulcer Yes: 2013 PMH - Hx Genitourinary Disorders Yes Hx Bladder Problem Yes: urgency PMH - Endocrine Hx Endocrine Disorders Yes Hx Thyroid Disease Yes PMH - Musculoskeletal Hx Musculoskeletal Disorders Yes Hx Arthritis Yes Comment: back stimulator by Dr Josue 2014 PMH - Psych Hx Psychiatric Problems Yes Hx Anxiety Yes Hx Depression Yes PMH - Hematology/Oncology Hx Hematology/Oncology Yes Disorders Hx Bruising Yes Hx Blood Transfusion Reaction No Premorbid Status: Detail (The patient reports that she lives with her and dog in a one story home that has both a basement and a loft. She reports that she doesn't go into the loft or basement that often. She says that she has three stairs to enter the home with one railing. Her home has both a walk-in shower and a shower/tub combination, and she says that she utilizes the walk-in shower because it has a seat. She reports that she is independent with her bathing, but her is available if she needs assistance. The bathroom has a standard height toilet, and she does not have grab bars in the bathroom or the shower. She says she does most of her cooking, laundry and cleaning. She denies the use of a cane or walker for ambulation. She does not drive any more.) Precautions: [place], [place] - Time With Patient Total Time Spent With Patient (Min): 35 Treatment Procedures: Detail (OT eval low complexity) Subjective Information - Subjective Information Per Patient Objective Data - Pain Pain Present: Yes (8-9 low back pain) - Mental Status Patient Orientation: Oriented x3 - Visual Perception Appears within normal limits for therapeutic activities - ROM Within normal limits (Roger UE AROM WNL) - Strength/Tone Within normal limits (Roger UE strength 4+/5) - Coordination Appears within normal limits for therapeutic activities - Bed Mobility Independent (Ind with supine to sit and sit to supine) - Transfers Independent (Ind with sit to stand from EOB) - Balance Balance Sitting: Good Balance Standing: Good - Sensation Intact - Gait Detail (Pt ambulating in hallway with SBA.) - ADL's/IADL's Detail (Pt reports she is toileting with assist due to IV but otherwise she has no concerns with performing ADLs after discharge.) Therapy Assessment - Therapy Assessment Detail (Pt has no concerns with self care activities. She presents with WNL UE function and is Ind with functional mobility.) Problem List - Problem List Occupational Therapy Problem List: Detail (No current OT problems identified.) Goals - Goals Occupational Therapy Goals: No current OT goals identified. Prognosis - Prognosis Good Plan - Plan Occupational Therapy Plan: No further OT recommended at this time. Thank you for this referral.
[2017-12-20] MEDS ORDERED: SIMVASTATIN 20 MG TABLET PO SCH (22:00)
[2017-12-21] MEDS ORDERED: DIPHENHYDRAMINE HCL 25 MG CAPSULE PO PRN (01:45)
[2017-12-21] MEDS: 0.9 % SODIUM CHLORIDE 1000ML 1,000 ML IV PRN (03:14)
[2017-12-21 06:55] LABS: BASO % 0.2 % (0-6); EOS % 0.4 % (0-6); GRAN % 60.7 % (47-80); HEMATOCRIT 37.2 % (35.0-47.0); HEMOGLOBIN 12.2 gm/dl (11.6-16.0); MEAN CELL VOLUME 98.7 fl (81-97); MEAN CORPUSCULAR HGB CONC 32.8 g/dl (32-36); MEAN PLATELET VOLUME 12.2 fl (7.4-10.4); MONO % 12.7 % (0-9); PLATELET COUNT 185 K/uL (130-400); RED BLOOD COUNT 3.77 M/uL (3.80-5.40); RED CELL DISTRIBUTION WIDTH 13.6 % (11.5-14.5); WHITE BLOOD COUNT W/O DIFF 5.3 K/uL (4.2-12.2)
[2017-12-21 07:00] LABS: MEAN CORPUSCULAR HEMOGLOBIN 32.3 pg (27-33)
[2017-12-21] MEDS ORDERED: LEVOTHYROXINE SODIUM 100 MCG TABLET PO SCH (07:00)
[2017-12-21 07:15] LABS: ALB/GLOB RATIO 1.3 (1.1-1.8); ALBUMIN 3.6 g/dL (4.0-5.0); ALKALINE PHOSPHATASE 55 U/L (35-104); ALT/SGPT 13 U/L (<33); AST/SGOT 18 U/L (10.0-35.0); BLOOD UREA NITROGEN 13 mg/dL (8-23); CREATININE 0.7 mg/dL (0.5-0.9); EST GLOMERULAR FILTRATION RATE > 60 mL/min; GLUCOSE,RANDOM 103 mg/dL (74-109); TOTAL PROTEIN 6.4 g/dL (6.6-8.7)
[2017-12-21] MEDS: BUPROPION HCL 150 MG TAB.SR.12H PO SCH (09:49)
[2017-12-21] MEDS: VENLAFAXINE ER 75 MG CAPSULE PO SCH (09:49)
[2017-12-21] MEDS: SERTRALINE HCL 50 MG TABLET PO SCH (09:49)
[2017-12-21] MEDS: DONEPEZIL HCL 5 MG TABLET PO SCH (09:49)
[2017-12-21] MEDS: QUINAPRIL HCL 10 MG TABLET PO SCH (09:50)
[2017-12-21] MEDS ORDERED: ENOXAPARIN 40 MG/0.4 ML SYR SQ SCH (10:00)
--- NOTE | 2017-12-21 11:25 | Discharge Summary ---
Providers Discharge Summary Date: 12/21/17 Date of admission: 12/19/17 22:06 Expected Date of Discharge: 12/21/17 Attending physician: TIMBO COOL Primary care physician: Caleb Schultz Consults: Consult Orders 12/20/17 08:02 Consult - Cardiology NOW Consulting Provider: Caleb Schultz Physician Instructions: Reason For Exam: paroxysmal a-fib Does pt have current wildlife biologist?: Not Established Physical Exam - Vital Signs Vital Signs: Vital Signs - Last 24 Hrs Temp Pulse Resp BP Pulse Ox 12/21/17 10:01 16 12/21/17 08:00 98.3 F 74 16 151/65 96 12/20/17 21:00 18 12/20/17 20:00 98.1 F 72 18 149/66 96 - General General Appearance: Alert, Cooperative, No acute distress Limitations: No limitations - Head Head exam: Atraumatic, Normocephalic, Normal inspection Head exam detail: negative: Abrasion, Contusion, Rand's sign, General tenderness, Hematoma, Laceration - Eye Eye exam: Normal appearance. negative: Conjunctival injection, Periorbital swelling, Periorbital tenderness, Scleral icterus - ENT ENT exam: Normal exam Ear exam: negative: Auricular hematoma, Auricular trauma Nasal Exam: negative: Active bleeding, Discharge, Dried blood, Sinus tenderness Mouth exam: negative: Drooling, Laceration, Tongue elevation - Neck Neck exam: Normal inspection. negative: Meningismus, Tenderness - Respiratory Respiratory exam: Normal lung sounds bilaterally. negative: Respiratory distress, Rhonchi, Stridor, Wheezes - Cardiovascular Cardiovascular Exam: Regular rate, Normal rhythm, Normal heart sounds - GI/Abdominal GI/Abdominal exam: Soft. negative: Rebound, Rigid, Tenderness - Rectal Rectal exam: Deferred - exam: Deferred - Extremities Extremities exam: negative: Calf tenderness, Pedal edema, Tenderness - Back Back exam: Reports: Paraspinal tenderness (Paravertebral muscles bilaterally thoracic spine region). Denies: CVA tenderness (R), CVA tenderness (L) - Neurological Neurological exam: Alert, CN II-XII intact. negative: Motor sensory deficit - Psychiatric Psychiatric exam: Normal affect, Normal mood - Skin Skin exam: Normal color. negative: Abrasion Type of lesion: negative: abrasion Hospitalization - Hospitalization Admission Diagnosis: Paroxysmal atrial fibrillation. ARF. Chronic back pain - Problem List/Discharge Diagnosis (1) Paroxysmal atrial fibrillation Current Visit: Yes Status: Acute Base Code: I48.0 - PAROXYSMAL ATRIAL FIBRILLATION Comment: 12/21/17 1000: Pt. had episode of paroxysmal a fib in ED , EKG was NSR, Pt. on continuous heart monitor and remains in NSR. Echo completed on 12/20- reviewed with Dr. Ayoub. Per Dr. Ayoub, no sign of a fib. Pt. does have moderate aortic insufficiency, but is appropriate to f/u on outpatient basis. Plan to discharge home this afternoon. (2) ARF (acute renal failure) Current Visit: Yes Status: Acute Discharge Diagnosis: Acute renal failure type: unspecified Qualified Code(s): N17.9 - Acute kidney failure, unspecified Base Code: N17.9 - ACUTE KIDNEY FAILURE, UNSPECIFIED Comment: 12/21/17: In ED on 12/19, BUN 412 and creatinine 1.4 (pt's baseline 22-25/1.1). BUN and creatinine now within normal range- 13 and 0.7. Plan to discharge home this afternoon after cardiology consult. (3) Lumbar pain Current Visit: No Status: Acute Base Code: M54.5 - LOW BACK PAIN Comment: 12/21/17 1000: Pt. presented to the ED on 12/19 for back pain that occurred while she was working with some shelves at her home. CT thoractic spine showed no fracture, diffuse spurring and spinal nerve stimulator in place. CT lumbar spine showed no fracture, advanced central canal stenosis of L2-L3, L3-L4. She continues to deny numbness, tingling, or weakness to extremities upon examination. Pt. states that back pain has greatly improved since yesterday, she denies pain at the present time. (4) At risk for deep venous thrombosis Current Visit: Yes Status: Acute Base Code: Z91.89 - OTH PERSONAL RISK FACTORS, NOT ELSEWHERE CLASSIFIED Comment: 12/21/17 1000: paroxysmal a fib in ED, decreased mobility secondary to lumbar strain. Pt. has recieved 40mg sc lovenox daily. Cardiology consult today, will consider d/c with anticoagulant if indicated. (5) Full code status Current Visit: Yes Status: Acute Base Code: Z78.9 - OTHER SPECIFIED HEALTH STATUS Comment: 12/21/17 1000: pt. remains full code status - Hospitalization Course Disposition: Home, Self-Care Hospital Course: Dolores is an 82 year-old female who presented to the ED on 12/19 for evaluation of back pain that started several weeks ago, may have injured while she was working with some shelves at her home. She denied numbness, tingling, and weakness of her extremities. It was noted that is a poor historian. Her history includes hypertension, ELMER, C-PAP, memory loss, ulcer, depression, anxiety, heavy etoh use, back stimulator inserted by Dr. Martins in 2014. In the ED, It was noted that she had an episode of paroxysmal a-fib. Her EKG demonstrated normal sinus rhythm with a rate of 87. Her CBC was unremarkable, her CMP showed elevated BUN of 41 and creatinine of 1.4. CT thoractic spine showed no fracture, diffuse spurring and spinal nerve stimulator in place. CT lumbar spine showed no fracture, advanced central canal stenosis of L2-L3, L3-L4. She continues to deny numbness, tingling, or weakness to extremities upon examination. Pt. was admitted for cardiac evaluation, monitoring of renal function, and ivf resuscitation. 12/20/17 1000: Pt. is resting in bed. She denies back pain at the present time , however, she states that she notices the pain with certain position changes. Vital signs remain stable. Plan PT/OT eval today. Plan to order echo today and cardiology consult. Dr. Ayoub here tomorrow, 12/21. Continue continuous heart monitor, continue to monitor CMP and vital signs. 12/21/17 1030: Pt. is up in bed at the present time. She states that her back pain has greatly improved. Explained to pt. that we are waiting on echo results and she has an appt. with cardiology this afternoon for paroxysmal a- fib that occurred in ED. If cleared from cardiology standpoint, will discharge home this afternoon. 12/21/17 1530: Pt. was scheduled with Dr. Ayoub today for cardiology consult. Reviewed echo that was done yesterday with Dr. Ayoub- Per Dr. Ayoub, pt. does have moderate aortic insufficiency, no visible atrial fibrillation and pt. is suitable to f/u with cardiology outpatient after discharge. Pt. continues to deny any symptoms of a-fib, including palpitations, dizziness/lightheadedness, chest pain. Plan to discharge home this afternoon, will set up cardiology f/u and f/u with PCP. Procedures: Cardiology Procedures 12/20/17 09:41 Echo W/CF & Cardiac Doppler NOW Abnormal Labs: Abnormal Lab Results 12/20/17 12/20/17 12/20/17 Range/Units 04:00 04:00 04:00 RBC 3.69 L (3.80-5.40) M/uL MCV 98.9 H (81-97) fl MPV 12.6 H (7.4-10.4) fl Monocytes % (0-9) % Monocytes 15.0 H (0-9) % Sodium (136-145) mmol/L Chloride (98-107) mmol/L BUN 33 H (8-23) mg/dL Creatinine 1.0 H (0.5-0.9) mg/dL Total Protein 6.2 L (6.6-8.7) g/dL Albumin 3.7 L (4.0-5.0) g/dL TSH 0.13 L (0.270-4.20) uIU/mL 12/21/17 12/21/17 Range/Units 06:34 06:34 RBC 3.77 L (3.80-5.40) M/uL MCV 98.7 H (81-97) fl MPV 12.2 H (7.4-10.4) fl Monocytes % 12.7 H (0-9) % Monocytes (0-9) % Sodium 146 H (136-145) mmol/L Chloride 110 H (98-107) mmol/L BUN (8-23) mg/dL Creatinine (0.5-0.9) mg/dL Total Protein 6.4 L (6.6-8.7) g/dL Albumin 3.6 L (4.0-5.0) g/dL TSH (0.270-4.20) uIU/mL Condition at Discharge: (1) Good VTE Discharge VTE Reason For No Overlap Therapy: Not Indicated Discharge Medications - Discharge Medications Home Medications: Ambulatory Orders Bupropion HCl [Bupropion Xl] 300 mg PO DAILY 11/25/17 [Last Taken 1 Day Ago ~] Diclofenac Sodium 1 gm TOP ASDIR 11/25/17 [Last Taken 1 Day Ago ~12/18/17] Donepezil HCl 10 mg PO DAILY 11/25/17 [Last Taken 1 Day Ago ~12/18/17] Levothyroxine Sodium [Synthroid] 112 mcg PO DAILY 11/25/17 [Last Taken 1 Day Ago ~12/18/17] Lovastatin 40 mg PO DAILY 11/25/17 [Last Taken 1 Day Ago ~12/18/17] Quinapril HCl [Accupril] 20 mg PO DAILY 11/25/17 [Last Taken 1 Day Ago ~12/18/17 ] Venlafaxine HCl [Venlafaxine HCl ER] 75 mg PO DAILY 11/25/17 [Last Taken 1 Day Ago ~12/18/17] Zolpidem Tartrate 10 mg PO QHS PRN 11/25/17 [Last Taken 1 Day Ago ~12/18/17] Sertraline HCl [Zoloft] 25 mg PO DAILY 12/19/17 [Last Taken 1 Day Ago ~12/18/17] Discharge Plan - Discharge Instructions Activity at Discharge: Increase Activity as Tolerated Diet at Discharge: Regular Diet Additional Instructions: Follow up with your PCP in 7-10 days Follow up with cardiology Return to ED if you experience any chest pain, palpitations, or dizziness. Quality Measures - Quality Measures Quality Measures: Advance Directives, Documentation of Current Medications in Medical Record, Elder Maltreatment Screen and Follow-Up Plan, Screening for High Blood Pressure and F/U Documented - Current Medications Quality Measure: Measure #130: Documentation of Current Medications Documentation of Current Medications: <Current Medications Documented/Reviewed> [[id number]] - Blood Pressure Screening Quality Measure: Screening for High Blood Pressure and Follow-Up Documented Does Patient Have Any of the Following: Active Dx of HTN Blood Pressure Classification: Pre-Hypertensive BP Reading Systolic Measurement: 125 Diastolic Measurement: 74 Screening for High Blood Pressure: Patient Exclusion, Hx of HTN [G9744] - Atrial Fibrillation and Atrial Flutter Medical Reason for NOT Prescribing Anticoagulant: Other Medical Reason - Advance Directives Quality Measure: Measure #47: Care Plan Advance Directives Established: No Advance Directives Information Provided To Patient: Declined Advance Directives on File: No Living Will: No Power of Director Part: No Advance Care Planning: <Care Plan/Decision Maker Documented; Discussed & Documented> [1120F] - Elder Abuse Suspicion Index Screening: Elder Abuse Suspicion Index Screening Rely on people for bathing, dressing, shopping, banking, etc: No Prevented from getting food, clothes, medication, etc: No Made to feel shamed or threatened by someone: No Forced to sign papers or use money against will: No Feel afraid, touched in ways not wanted or hurt physically: No Poor eye contact, withdrawn, malnourished, cuts or bruises: No Screening Result: Negative result EASI Reference Information: Bassam ESPINOSA, Ricci C, Trevon Lux, Jay Last.Development and validation of a tool to assist physicians identification of elder abuse: The Elder Abuse Suspicion Index (EASI ). Journal of Elder Abuse and Neglect, 2008; 20 (3): 276-300. - Elder Maltreatment Screen Quality Measures: Elder Maltreatment Screen and Follow-Up Plan Elder Maltreatment Screen: <Negative, No Follow-Up Plan Required> [G8734]
== END 2017-12-21 16:50 | disposition home or self-care (01) ==
LOC: ER 17:35 → INTOOBSV 22:06 → MEDSURG 22:06
PROVIDERS: ADMIT Internal Medicine; ATTEND Internal Medicine
DX: M54.5 Low back pain (principal); G47.33 Obstructive sleep apnea (adult) (pediatric); I48.0 Paroxysmal atrial fibrillation; I10 Essential (primary) hypertension; E03.9 Hypothyroidism, unspecified; Z72.89 Other problems related to lifestyle; E78.00 Pure hypercholesterolemia, unspecified; F41.8 Other specified anxiety disorders; N17.9 Acute kidney failure, unspecified; I34.0 Nonrheumatic mitral (valve) insufficiency
CPT/HCPCS: 93041; 99285 ×2; 82550; 85025 ×2; 85730; 85610; 82553; 80053 ×3; 84443; 84484 ×2; 85027; 72131; 72128; 94761; 93005; 93010; G0378 ×3; J3490 ×2; G8978; G8979; G8980; G8987; G8988; G8989; 97165; 99217; 99220; J1650

== ENCOUNTER 2018-09-22 12:05 | Emergency (ER) | payer MEDICARE ==
--- NOTE | 2018-09-22 12:33 | Emergency Department Record ---
History of Present Illness - General Chief Complaint: Back Pain/Injury Stated Complaint: PAIN Time Seen by Provider: 09/22/18 12:27 Source: Patient - History of Present Illness Initial Comments: The patient states her left sciatic low back has been painful for a few weeks. She had a nerve block by Dr. Josue in his office a few weeks ago(she can't remember the date). He blocked both theright and the left sciatic area, but only the right one "took" She has taken only over the counter arthritis medicine and it is not controlling the pain. MD Complaint: Back pain Onset/Timin -: Week(s) Similar Symptoms Previously: Yes Place: Home Severity scale (1-10): 9 Quality: Sharp, Stabbing Consistency: Constant Associated Symptoms: Denies other symptoms Treatments Prior to Arrival: Acetaminophen, Other - Related Data Previous Rx's Medication Instructions Recorded Lidocaine Patch [Lidoderm] 1 each TOP ASDIR 7 Days #1 box 09/22/18 Allergies Allergy/AdvReac Type Severity Reaction Status Date / Time No Known Drug Intolerances Allergy Unknown HYPERSENSIT Verified 12/19/17 17:59 IVITY Travel Screening - Travel/Exposure Within Last 30 Days Have you traveled within the last 30 days?: No - Travel/Exposure Within Last Year Have you traveled outside the [place] in the last year?: No - Additonal Travel Details Have you been exposed to anyone with a communicable illness?: No - Travel Symptoms Symptom Screening: None Review of Systems Reviewed: No additional complaints except as noted below Constitutional: Reports: As per HPI. Denies: Chills, Fever, Malaise, Night sweats, Weakness, Weight change Eyes: Reports: As per HPI. Denies: Eye discharge, Eye pain, Photophobia, Vision change ENT: Reports: As per HPI. Denies: Congestion, Dental pain, Ear pain, Epistaxis , Hearing loss, Throat pain Respiratory: Reports: As per HPI. Denies: Cough, Dyspnea, Hemoptysis, Stridor, Wheezes Cardiovascular: Reports: As per HPI. Denies: Arrhythmia, Chest pain, Dyspnea on exertion, Edema, Murmurs, Orthopnea, Palpitations, Paroxysmal nocturnal dyspnea, Rheumatic Fever, Syncope Endocrine: Reports: As per HPI. Denies: Fatigue, Heat or cold intolerance, Polydipsia, Polyuria Gastrointestinal: Reports: As per HPI. Denies: Abdominal pain, Constipation, Diarrhea, Hematemesis, Hematochezia, Melena, Nausea, Vomiting Genitourinary: Reports: As per HPI. Denies: Abnormal menses, Discharge, Dyspareunia, Dysuria, Frequency, Hematuria, Incontinence, Retention, Urgency Musculoskeletal: Reports: As per HPI. Denies: Arthralgia, Back pain, Gout, Joint swelling, Myalgia, Neck pain Skin: Reports: As per HPI. Denies: Bruising, Change in color, Change in hair/ nails, Lesions, Pruritus, Rash Neurological: Reports: As per HPI. Denies: Abnormal gait, Confusion, Headache, Numbness, Paresthesias, Seizure, Tingling, Tremors, Vertigo, Weakness Psychiatric: Reports: As per HPI. Denies: Anxiety, Auditory hallucinations, Depression, Homicidal thoughts, Suicidal thoughts, Visual hallucinations Hematological/Lymphatic: Reports: As per HPI. Denies: Anemia, Blood Clots, Easy bleeding, Easy bruising, Swollen glands Past Medical History - SOCIAL HISTORY Smoking Status: Never smoker Alcohol Use: Occasional Drug Use: None - RESPIRATORY Hx Respiratory Disorders: Yes Hx Sleep Apnea: Yes Hx of CPAP: Yes - CARDIOVASCULAR Hx Cardio Disorders: Yes Hx Hypertension: Yes (on meds well controlled) Comment:: high cholesterol - NEURO Hx Neuro Disorders: Yes Comment:: memory loss mild - GI Hx GI Disorders: Yes Hx Reflux: Yes Hx Rectal Bleeding: Yes (2013) Hx Ulcer: Yes (2013) - Hx Genitourinary Disorders: Yes Hx Bladder Problem: Yes (urgency) - ENDOCRINE Hx Endocrine Disorders: Yes Hx Thyroid Disease: Yes - MUSCULOSKELETAL Hx Musculoskeletal Disorders: Yes Hx Arthritis: Yes Comment:: back stimulator by Dr Josue 2014 - PSYCH Hx Psych Problems: Yes Hx Anxiety: Yes Hx Depression: Yes - HEMATOLOGY/ONCOLOGY Hx Hematology/Oncology Disorders: Yes Hx Bruising: Yes Hx Blood Transfusions: Yes (04/2015 in hospital for GIB) Hx Blood Transfusion Reaction: No Family Medical History Any Significant Family History?: No Hx Cancer: Mother Physical Exam - General General Appearance: Alert, Oriented x3, Cooperative, Moderate distress - Head Head exam: Normal inspection - Eye Eye exam: Normal appearance, PERRL Pupils: Normal accommodation - ENT ENT exam: Normal exam, Mucous membranes moist, Normal external ear exam, Normal orophraynx, TM's normal bilaterally Ear exam: Normal external inspection. negative: External canal tenderness Nasal Exam: Normal inspection. negative: Discharge, Sinus tenderness Mouth exam: Normal external inspection, Tongue normal Teeth exam: Normal inspection. negative: Dental caries Throat exam: Normal inspection. negative: Tonsillar erythema, Tonsillar exudate - Neck Neck exam: Normal inspection, Full ROM. negative: Lymphadenopathy, Meningismus , Tenderness - Respiratory Respiratory exam: Normal lung sounds bilaterally. negative: Respiratory distress - Cardiovascular Cardiovascular Exam: Regular rate, Normal rhythm, Normal heart sounds - GI/Abdominal GI/Abdominal exam: Soft, Normal bowel sounds. negative: Tenderness - Rectal Rectal exam: Deferred - exam: Deferred - Extremities Extremities exam: Normal inspection, Full ROM, Normal capillary refill, Other ( strong pulses, normal color, and temp. motor strength intact and equal bilaterally.). negative: Calf tenderness, Pedal edema, Tenderness - Back Back exam: Reports: Normal inspection, Full ROM, Tenderness (left SI joint tender to palpation). Denies: Muscle spasm, Rash noted - Neurological Neurological exam: Alert, Normal gait, Oriented X3, Reflexes normal - Psychiatric Psychiatric exam: Normal affect, Normal mood - Skin Skin exam: Dry, Intact, Normal color, Warm Course Vital Signs 09/22/18 12:10 Temperature 97.8 F Pulse Rate 85 Respiratory 18 Rate Blood Pressure 179/86 Pulse Ox 97 Medical Decision Making - Management Options MDM Management: No Additional Work-up Planned Disposition Disposition: Discharge Clinical Impression: Sciatica of left side Disposition: Home, Self-Care Condition: (2) Stable Instructions: Low Back Strain (ED) Additional Instructions: Follow up with Dr Josue. No lifting bending twisting. Apply Lidoderm patch to affected painful area as needed, once daily. Prescriptions: Lidocaine Patch [Lidoderm] 1 each TOP ASDIR 7 Days #1 box Quality - Quality Measures Quality Measures: N/A - Blood Pressure Screening Does Patient Have Any of the Following: No Blood Pressure Classification: Pre-Hypertensive BP Reading Systolic Measurement: 179 Diastolic Measurement: 86 Screening for High Blood Pressure: < Pre-Hypertensive BP, F/U Documented > [ G8950] Pre-Hypertensive Follow-up Interventions: Follow-up with rescreen every year.
[2018-09-22] MEDS ORDERED: ORPHENADRINE CITRATE 60MG/2ML VIAL IM ONE (12:36)
[2018-09-22] MEDS ORDERED: KETOROLAC 30 MG/ML VIAL IM ONE (12:36)
== END 2018-09-22 13:37 | disposition home or self-care (01) ==
LOC: ER 12:05
DX: M54.42 Lumbago with sciatica, left side (principal); I10 Essential (primary) hypertension
CPT/HCPCS: 99283 ×2; 96372; J1885; J2360

== ENCOUNTER 2019-03-23 12:24 | Emergency (ER) | payer MEDICARE ==
[2019-03-23] MEDS ORDERED: PREDNISONE 10 MG TAB PO ONE (12:36)
--- NOTE | 2019-03-23 12:43 | Emergency Department Record ---
History of Present Illness - General Chief complaint: Rash Stated complaint: RASH ON ARMS Time Seen by Provider: 03/23/19 12:34 Source: Patient, Family () Mode of Arrival: Ambulatory Limitations: Other (issues with memory per who assists with history. Pt able to communicate current complaint. ) - History of Present Illness Initial comments: Pt relates about one week hx of rash to bilateral arms with itching and redness. No MACARENA or tightness in the throat. No new meds, soaps, detergents, or foods. No travel. No treatments at home. No hx of similar. No fever, no DM. Hx Tetanus Toxoid Vaccination: Yes Year of Tetanus Vaccination: 2016 Patient Tetanus UTD (within 5 yrs): Yes Location: Face, Neck, LUE, RUE Consistency: Constant Improves with: None Worsens with: None Context: None Associated symptoms: Denies other symptoms Treatments Prior to Arrival: None - Related Data Previous Rx's Medication Instructions Recorded Lidocaine Patch [Lidoderm] 1 each TOP ASDIR 7 Days #1 box 09/22/18 Loratadine [Claritin] 10 mg PO DAILY #20 tablet 03/23/19 Prednisone [Deltasone] 40 mg PO DAILY 4 Days #8 tablet 03/23/19 Ranitidine HCl [Zantac] 150 mg PO BID 4 Days #8 tablet 03/23/19 Allergies Allergy/AdvReac Type Severity Reaction Status Date / Time No Known Drug Intolerances Allergy Unknown no Verified 03/23/19 12:30 allergies Travel Screening - Travel/Exposure Within Last 30 Days Have you traveled within the last 30 days?: No Review of Systems Constitutional: Denies: Chills, Fever, Weakness Eyes: Denies: Eye discharge, Photophobia ENT: Denies: Congestion, Ear pain Respiratory: Denies: Cough, Dyspnea, Wheezes Cardiovascular: Denies: Arrhythmia, Palpitations, Syncope Endocrine: Denies: Fatigue, Polydipsia Gastrointestinal: Denies: Abdominal pain, Constipation, Nausea, Vomiting Musculoskeletal: Denies: Arthralgia Skin: Reports: As per HPI, Rash. Denies: Bruising Neurological: Reports: Abnormal gait, Headache. Denies: Weakness Psychiatric: Denies: Anxiety Hematological/Lymphatic: Denies: Anemia Past Medical History - SOCIAL HISTORY Smoking Status: Never smoker Alcohol Use: None Drug Use: None - RESPIRATORY Hx Respiratory Disorders: Yes Hx Sleep Apnea: Yes Hx of CPAP: Yes - CARDIOVASCULAR Hx Cardio Disorders: Yes Hx Hypertension: Yes (on meds well controlled) Comment:: high cholesterol - NEURO Hx Neuro Disorders: Yes Comment:: memory loss mild - GI Hx GI Disorders: Yes Hx Reflux: Yes Hx Rectal Bleeding: Yes (2013) Hx Ulcer: Yes (2013) - Hx Genitourinary Disorders: Yes Hx Bladder Problem: Yes (urgency) - ENDOCRINE Hx Endocrine Disorders: Yes Hx Thyroid Disease: Yes - MUSCULOSKELETAL Hx Musculoskeletal Disorders: Yes Hx Arthritis: Yes Comment:: back stimulator by Dr Josue 2014 - PSYCH Hx Psych Problems: Yes Hx Anxiety: Yes Hx Depression: Yes - HEMATOLOGY/ONCOLOGY Hx Hematology/Oncology Disorders: Yes Hx Bruising: Yes Hx Blood Transfusions: Yes (04/2015 in hospital for GIB) Hx Blood Transfusion Reaction: No Family Medical History Any Significant Family History?: Yes Hx Cancer: Mother Physical Exam - General General Appearance: Alert, Cooperative, No acute distress (O to person and place. ) - Head Head exam: Normal inspection - Eye Eye exam: Normal appearance, PERRL - ENT ENT exam: Normal exam, Mucous membranes moist, Normal external ear exam, Normal orophraynx, TM's normal bilaterally Throat exam: Other (Uvula midline normal, airway patent. ) - Neck Neck exam: Normal inspection, Full ROM. negative: Tenderness - Respiratory Respiratory exam: Normal lung sounds bilaterally. negative: Respiratory distress, Wheezes - Cardiovascular Cardiovascular Exam: Regular rate, Normal rhythm, Normal heart sounds. negative : Tachycardia Peripheral Pulses: 2+: Radial (R), Radial (L) - GI/Abdominal GI/Abdominal exam: Soft, Normal bowel sounds. negative: Guarding, Tenderness - Extremities Extremities exam: Normal inspection. negative: Full ROM, Joint swelling, Pedal edema, Tenderness - Back Back exam: Reports: Normal inspection - Neurological Neurological exam: Alert, Normal gait. negative: Motor sensory deficit - Psychiatric Psychiatric exam: Normal affect, Normal mood - Skin Skin exam: Erythema, Rash Type of lesion: Rash Distribution of rash: Chest, RUE, LUE. negative: RLE, LLE Description of rash: Erythematous, Macular, Urticarial. negative: Confluent, Crusting, Discharge, Fluctuant, Indurated, Petechial, Purpuic, Tenderness, Vesicular (rash to bilateal volar forearms, + Blanching. ) Course Vital Signs 03/23/19 12:31 Temperature 97.8 F Pulse Rate 88 Respiratory 18 Rate Blood Pressure 155/77 Pulse Ox 97 - Reevaluation(s) Reevaluation #1: 03/23/19 13:35 Rash slightly less itching per pt with decreased redness. Discussed home care with pt and . They understand and agree. Disposition Disposition: Discharge Clinical Impression: Allergic dermatitis, Urticaria Disposition: Home, Self-Care Condition: (1) Good Instructions: Urticaria (ED) Additional Instructions: Do not scratch at area. Keep finger nails trimmed and clean. Take medications as ordered. May cause drowsiness. See your family doctor in 3 days or return to the ED at any time if worse or concerns. Prescriptions: Loratadine [Claritin] 10 mg PO DAILY #20 tablet Prednisone [Deltasone] 40 mg PO DAILY 4 Days #8 tablet Ranitidine HCl [Zantac] 150 mg PO BID 4 Days #8 tablet Forms: Patient Portal Access Time of Disposition: 13:36 Quality - Quality Measures Quality Measures: N/A - Blood Pressure Screening Does Patient Have Any of the Following: No Blood Pressure Classification: Hypertensive Reading Systolic Measurement: 155 Diastolic Measurement: 77 Screening for High Blood Pressure: < Pre-Hypertensive BP, F/U Documented > [ G8950] Pre-Hypertensive Follow-up Interventions: Follow-up with rescreen every year.
[2019-03-23] MEDS ORDERED: LORATADINE 10 MG TABLET PO SCH (12:45)
[2019-03-23] MEDS ORDERED: RANITIDINE HCL 150 MG TABLET PO SCH (12:45)
== END 2019-03-23 13:57 | disposition home or self-care (01) ==
LOC: ER 12:24
DX: L23.9 Allergic contact dermatitis, unspecified cause (principal); I10 Essential (primary) hypertension
CPT/HCPCS: 99282; J7512

== ENCOUNTER 2019-06-25 10:15 | Emergency (ER) | payer MEDICARE ==
[2019-06-25 11:07] LABS: ABSOLUTE NEUTROPHIL COUNT 6.06; BASO % 0.1 % (0-6); EOS % 0.4 % (0-6); GRAN % 74.5 % (47-80); HEMATOCRIT 36.1 % (35.0-47.0); HEMOGLOBIN 11.8 gm/dl (11.6-16.0); LYMPH % 14.5 % (16-45); MEAN CELL VOLUME 98.4 fl (81-97); MEAN CORPUSCULAR HEMOGLOBIN 32.1 pg (27-33); MEAN CORPUSCULAR HGB CONC 32.7 g/dl (32-36); MEAN PLATELET VOLUME 11.4 fl (7.4-10.4); MONO % 10.5 % (0-9); PLATELET COUNT 217 K/uL (130-400); RED BLOOD COUNT 3.67 M/uL (3.80-5.40); RED CELL DISTRIBUTION WIDTH 12.9 % (11.5-14.5); WHITE BLOOD COUNT W/O DIFF 8.1 K/uL (4.2-12.2)
[2019-06-25 11:22] LABS: BILIRUBIN,TOTAL 0.3 mg/dL (0.2-1.0)
[2019-06-25 11:23] LABS: TOTAL PROTEIN 5.8 g/dL (6.6-8.7)
[2019-06-25 11:28] LABS: ALB/GLOB RATIO 1.6 (1.1-1.8); ALBUMIN 3.6 g/dL (4.0-5.0)
--- NOTE | 2019-06-25 11:50 | Emergency Department Record ---
History of Present Illness - General Chief complaint: Rectal bleeding Stated complaint: RECTAL BLEEDING Time Seen by Provider: 06/25/19 10:27 Source: Patient Mode of Arrival: Ambulatory Limitations: No limitations - History of Present Illness Initial comments: pt has been constipated for a week and has had blood on the tissue. she has some pain in the lower abdomen. she is a poor historian. she has not had a colonoscopy MD complaint: Blood on toilet paper Onset/Timin -: Week(s) Radiation: Back, LLQ, RLQ Severity scale (1-10): 9 Quality: Sharp Improves with: None Worsens with: None Associated Symptoms: Abdominal pain - Related Data Allergies Allergy/AdvReac Type Severity Reaction Status Date / Time No Known Drug Intolerances Allergy Unknown no Verified 06/25/19 10:35 allergies Travel Screening - Travel/Exposure Within Last 30 Days Have you traveled within the last 30 days?: No - Travel Symptoms Symptom Screening: None Review of Systems Reviewed: No additional complaints except as noted below Constitutional: Reports: As per HPI. Denies: Chills, Fever, Malaise, Night sweats, Weakness, Weight change Eyes: Reports: As per HPI. Denies: Eye discharge, Eye pain, Photophobia, Vision change ENT: Reports: As per HPI. Denies: Congestion, Dental pain, Ear pain, Epistaxis, Hearing loss, Throat pain Respiratory: Reports: As per HPI. Denies: Cough, Dyspnea, Hemoptysis, Stridor, Wheezes Cardiovascular: Reports: As per HPI. Denies: Arrhythmia, Chest pain, Dyspnea on exertion, Edema, Murmurs, Orthopnea, Palpitations, Paroxysmal nocturnal dyspnea, Rheumatic Fever, Syncope Endocrine: Reports: As per HPI. Denies: Fatigue, Heat or cold intolerance, Polydipsia, Polyuria Gastrointestinal: Reports: As per HPI, Abdominal pain, Constipation, Hematochezia. Denies: Diarrhea, Hematemesis, Melena, Nausea, Vomiting Genitourinary: Reports: As per HPI. Denies: Abnormal menses, Discharge, Dyspareunia, Dysuria, Frequency, Hematuria, Incontinence, Retention, Urgency Musculoskeletal: Reports: As per HPI. Denies: Arthralgia, Back pain, Gout, Joint swelling, Myalgia, Neck pain Skin: Reports: As per HPI. Denies: Bruising, Change in color, Change in hair/nails, Lesions, Pruritus, Rash Neurological: Reports: As per HPI. Denies: Abnormal gait, Confusion, Headache, Numbness, Paresthesias, Seizure, Tingling, Tremors, Vertigo, Weakness Psychiatric: Reports: As per HPI. Denies: Anxiety, Auditory hallucinations, Depression, Homicidal thoughts, Suicidal thoughts, Visual hallucinations Hematological/Lymphatic: Reports: As per HPI. Denies: Anemia, Blood Clots, Easy bleeding, Easy bruising, Swollen glands Past Medical History - SOCIAL HISTORY Smoking Status: Never smoker Alcohol Use Comment: one "good" drink daily. Drug Use: None - RESPIRATORY Hx Respiratory Disorders: Yes Hx Sleep Apnea: Yes Hx of CPAP: Yes - CARDIOVASCULAR Hx Cardio Disorders: Yes Hx Hypertension: Yes (on meds well controlled) Comment:: high cholesterol - NEURO Hx Neuro Disorders: Yes Comment:: memory loss mild - GI Hx GI Disorders: Yes Hx Reflux: Yes Hx Rectal Bleeding: Yes (2013) Hx Ulcer: Yes (2013) - Hx Genitourinary Disorders: Yes Hx Bladder Problem: Yes (urgency) - ENDOCRINE Hx Endocrine Disorders: Yes Hx Thyroid Disease: Yes - MUSCULOSKELETAL Hx Musculoskeletal Disorders: Yes Hx Arthritis: Yes Comment:: back stimulator by Dr Josue 2014 - PSYCH Hx Psych Problems: Yes Hx Anxiety: Yes Hx Depression: Yes - HEMATOLOGY/ONCOLOGY Hx Hematology/Oncology Disorders: Yes Hx Bruising: Yes Hx Blood Transfusions: Yes (04/2015 in hospital for [facility]) Hx Blood Transfusion Reaction: No Family Medical History Any Significant Family History?: No Family Hx Comment (NOT TO BE USED IN PLACE OF ITEMS BELOW): pt can't remember. Physical Exam - General General Appearance: Alert, Oriented x3, Cooperative, Mild distress - Head Head exam: Normal inspection - Eye Eye exam: Normal appearance, PERRL, EOMI Pupils: Normal accommodation - ENT ENT exam: Normal exam, Mucous membranes moist, Normal external ear exam, Normal orophraynx Ear exam: Normal external inspection. negative: External canal tenderness Nasal Exam: Normal inspection. negative: Discharge, Sinus tenderness Mouth exam: Normal external inspection, Tongue normal Teeth exam: Normal inspection. negative: Dental caries Throat exam: Normal inspection. negative: Tonsillar erythema, Tonsillar exudate - Neck Neck exam: Normal inspection, Full ROM. negative: Tenderness - Respiratory Respiratory exam: Normal lung sounds bilaterally. negative: Respiratory distress - Cardiovascular Cardiovascular Exam: Regular rate, Normal rhythm, Normal heart sounds - GI/Abdominal GI/Abdominal exam: Soft, Normal bowel sounds, Tenderness (lower abdomen) - Rectal Rectal exam: Bloody stool - exam: Deferred - Extremities Extremities exam: Normal inspection, Full ROM, Normal capillary refill. negativ e: Tenderness - Back Back exam: Reports: Normal inspection, Full ROM. Denies: Muscle spasm, Rash noted, Tenderness - Neurological Neurological exam: Alert, CN II-XII intact, Normal gait, Oriented X3 - Psychiatric Psychiatric exam: Normal affect, Normal mood - Skin Skin exam: Dry, Intact, Normal color, Warm Course Vital Signs 06/25/19 10:17 Temperature 97.3 F L Pulse Rate 83 Respiratory 16 Rate Blood Pressure 122/59 Pulse Ox 98 Medical Decision Making - Lab Data Result diagrams: 06/25/19 11:00 06/25/19 11:00 Lab Results 06/25/19 06/25/19 Range/Units 11:00 11:00 WBC 8.1 (4.2-12.2) K/uL RBC 3.67 L (3.80-5.40) M/uL Hgb 11.8 (11.6-16.0) gm/dl Hct 36.1 (35.0-47.0) % MCV 98.4 H (81-97) fl MCH 32.1 (27-33) pg MCHC 32.7 (32-36) g/dl RDW 12.9 (11.5-14.5) % Plt Count 217 (130-400) K/uL MPV 11.4 H (7.4-10.4) fl Gran % 74.5 (47-80) % Lymphocytes % 14.5 L (16-45) % Monocytes % 10.5 H (0-9) % Eosinophils % 0.4 (0-6) % Basophils % 0.1 (0-6) % Absolute Neutrophils 6.06 Sodium 140 (136-145) mmol/L Potassium 3.8 (3.4-4.5) mmol/L Chloride 106 (98-107) mmol/L Carbon Dioxide 23.0 (22-29) mmol/L Anion Gap 11.0 (7-16) BUN 34 H (8-23) mg/dL Creatinine 1.0 H (0.5-0.9) mg/dL Estimated GFR 56 mL/min Random Glucose 188 H (74-109) mg/dL Calcium 9.0 (8.8-10.2) mg/dL Total Bilirubin 0.30 (0.2-1.0) mg/dL AST 21 (10.0-35.0) U/L ALT 14 (<33) U/L Alkaline Phosphatase 60 (35-104) U/L Total Protein 5.8 L (6.6-8.7) g/dL Albumin 3.6 L (4.0-5.0) g/dL Globulin 2.2 (1.4-4.8) gm/dL Albumin/Globulin Ratio 1.6 (1.1-1.8) Lipase 29 (13-60) U/L Disposition Disposition: Transfer Clinical Impression: Colitis GI bleed Qualifiers: GI bleed type/associated pathology: unspecified gastrointestinal hemorrhage type Qualified Code(s): K92.2 - Gastrointestinal hemorrhage, unspecified Disposition: Acute Care Hospital Transfer Transfer To: [facility] Reason For Transfer: needs GI Accepting Physician: dr villa Time Discussed w/Accepting Physician: 12:07 Forms: Patient Portal Access Quality - Quality Measures Quality Measures: N/A - Blood Pressure Screening Does Patient Have Any of the Following: No Blood Pressure Classification: Pre-Hypertensive BP Reading Systolic Measurement: 122 Diastolic Measurement: 59 Screening for High Blood Pressure: < Pre-Hypertensive BP, F/U Documented > [G8950] Pre-Hypertensive Follow-up Interventions: Follow-up with rescreen every year.
[2019-06-25] MEDS ORDERED: CIPROFLOXACIN LACTATE/D5W 400 MG/200 ML BAG IVPB ONE (12:02)
--- NOTE | 2019-06-26 07:21 | CT SCAN REPORT ---
EXAM: CT OF THE ABDOMEN AND PELVIS WITHOUT CONTRAST HISTORY: LOW ABDOMINAL PAIN FOR TWO WEEKS. BLOOD ON TOILET PAPER. TECHNIQUE: Helical CT examination of the abdomen and pelvis was performed without oral or intravenous contrast administration. Lack of oral and IV contrast utilization limits evaluation of the bowel and solid viscera respectively. Comparison: No prior imaging of the abdomen nor pelvis available for comparison. CT of the lumbar spine without contrast dated 12/19/17. FINDINGS: Mild linear scarring versus atelectasis within the anterior lung bases. Minimal dependent atelectasis also noted in each lung base. No pleural or pericardial effusion. The heart is not enlarged. The liver, spleen, pancreas, adrenal glands, and kidneys are normal in appearance to the extent visualized. No calcified gallstone nor gross gallbladder wall thickening. No definite biliary ductal dilatation. No intraabdominal nor retroperitoneal lymphadenopathy is seen. A few nonenlarged gastrohepatic ligament lymph nodes are present. There is diffuse atherosclerosis without aneurysmal dilatation of the abdominal aorta nor iliac arteries. The abdominal aorta is tortuous with levo-convexity of the infrarenal portion. No definite pelvic mass nor adenopathy. The uterus is either atrophic or surgically absent. No intrinsic urinary bladder abnormality is seen though evaluation is limited by lack of distention. Trace free fluid in the pelvis is questioned. There is mild diverticulosis of the sigmoid colon without convincing evidence of diverticulitis. There is questionable mild diffuse wall thickening of the descending portion of the colon with mild adjacent fat stranding consistent with nonspecific colitis. Evaluation of the rectum is limited by lack of distention. No evidence of bowel obstruction. The appendix is at least partially visualized and normal in appearance. No free intraperitoneal air. There is mild to moderate superior end plate compression deformity of L3 appearing chronic. This is new since the prior 12/19/17 CT examination though is visualized on a radiographic examination dated 07/29/18. There is associated Grade 1 anterolisthesis of L2 on L3. Multilevel degenerative changes are present. An interspinal stimulator is in place entering the spinal canal at the L1-L2 level. The stimulator generator is located in the subcutaneous right gluteal region. IMPRESSION: 1. LACK OF ORAL AND IV CONTRAST UTILIZATION LIMITS EVALUATION. 2. APPARENT MILD DIFFUSE WALL THICKENING OF THE DESCENDING COLON WITH MILD ADJACENT FAT STRANDING SUSPICIOUS FOR NONSPECIFIC COLITIS. 3. SIGMOID DIVERTICULOSIS. 4. POSSIBLE TRACE FREE FLUID IN THE DEPENDENT PELVIS. 5. CHRONIC APPEARING SUPERIOR END PLATE COMPRESSION DEFORMITY OF L3. MULTILEVEL DEGENERATIVE CHANGES THROUGHOUT THE LUMBAR SPINE. 6. DUAL LEAD INTERSPINAL STIMULATOR IN PLACE. JOB NUMBER: [id number] MTDD
== END 2019-06-25 13:45 | disposition short-term general hospital (02) ==
LOC: ER 10:15
DX: K92.2 Gastrointestinal hemorrhage, unspecified (principal); K52.9 Noninfective gastroenteritis and colitis, unspecified; R10.31 Right lower quadrant pain; R10.32 Left lower quadrant pain; I10 Essential (primary) hypertension
CPT/HCPCS: 74176; 80053; 83690; 85025; 96365; 99285